=== PATIENT | female | born 1955 | race Caucasian/White ===

== ENCOUNTER → 2024-08-22 | Outpatient (CLI) | payer MEDICARE, BC, SELFPAY ==
[2024-08-22 16:25] LABS: POSITIVE MORPHOLOGY YES; Platelet Count 123 K/mm3 (150-450)
[2024-08-22 17:02] LABS: Differential Indicated SCAN CRITERIA MET
== END | disposition home or self-care (01) ==
LOC: LAB 15:48
PROVIDERS: PCP Internal Medicine; Referring Provider Anesthesiology; Visit Provider Anesthesiology
DX: D69.6 Thrombocytopenia, unspecified (principal)
CPT/HCPCS: 36415; 85049

== ENCOUNTER → 2024-12-19 | Outpatient (CLI) | payer MEDICARE, BC, SELFPAY ==
[2024-12-26 12:07] LABS: HPV APTIMA, High Risk Negative (Negative)
== END | disposition home or self-care (01) ==
LOC: LABSPEC 17:03
PROVIDERS: PCP Internal Medicine; Referring Provider Nurse Practitioner Family; Visit Provider Nurse Practitioner Family
DX: Z12.4 Encounter for screening for malignant neoplasm of cervix (principal)
CPT/HCPCS: 87624; 88175; G0145

== ENCOUNTER → 2025-02-11 | Outpatient (CLI) | payer MEDICARE, BC, SELFPAY ==
--- NOTE | 2025-02-11 13:55 | RAD_ITS ---
PROCEDURE: CERV SPINE 2 OR 3 VIEWS 02/11/2025 REASON FOR EXAM: CERVICAL SPONDYLOSIS TECHNIQUE: 3 views of the cervical spine. COMPARISON: None available FINDINGS: The cervical spine is visualized on the lateral view from the skull base to the bottom of C7. No fracture or malalignment. No prevertebral soft tissue swelling. C5-6 and C6-7 spondylosis/discogenic change with moderate disc space narrowing. Bilateral [id number]-right multilevel facet degenerative hypertrophic changes. RAD/Cerv Spine 2 or 3 Views IMPRESSION: Cervical spondylosis/discogenic changes above. Reading Location: [id number]
== END | disposition home or self-care (01) ==
LOC: RAD 13:48
PROVIDERS: PCP Family Medicine; Referring Provider Anesthesiology; Visit Provider Anesthesiology
DX: M47.812 Spondylosis without myelopathy or radiculopathy, cervical region (principal)
CPT/HCPCS: 72040